=== PATIENT | male | born 1940 | race Caucasian/White ===

== ENCOUNTER 2020-05-05 17:48 | Inpatient (IN) ==
[2020-05-05] MEDS ORDERED: MORPHINE 4 MG/1 ML VIAL IV ONE (18:48)
[2020-05-05] MEDS ORDERED: ONDANSETRON 4 MG/2 ML VIAL IV STA (18:48)
[2020-05-05 20:41] LABS: Basophils % 0.2 % (0.0-0.8); Eosinophils % 0.1 % (0.00-10.9); Hematocrit 33.6 VOL% (42.0-52.0); Hemoglobin 11.5 GM/DL (14.0-18.0); Immature Granulocytes % 0.7 %; Immature Granulocytes Absolute 0.13 #; Lymphocytes # 0.5 10*3/uL (1.4-4.0); Lymphocytes % 2.6 % (21.2-54.2); Mean Corpuscular HGB Conc 34.2 GM/DL (32-36); Mean Corpuscular Volume 95.5 FL (87-102); Mean Platelet Volume 8.8 FL (9.6-12.0); Monocytes % 4.6 % (1.7-12.7); Neutrophils % 91.8 % (38.7-73.9); Platelet Count 262 T/CUMM (130-400); Red Blood Count 3.52 MC/CUMM (3.8-5.5); Red Cell Distribution Width 13.3 % (9.3-17.3); White Blood Count 19.1 T/CUMM (4-12)
[2020-05-05 20:56] LABS: INR 1.1; PT Patient Result 11.6 SECS (9.8-11.9); Partial Thromboplastin Time 25.6 SECS (23.9-33.8)
[2020-05-05 20:57] LABS: Calcium 9.5 MG/DL (8.5-10.1); Osmolality,Calculated 288.4 MOS/KG (273-304); Potassium 3.9 MMOL/L (3.5-5.1)
[2020-05-05 21:02] LABS: Band Neutrophils 2 % (0-10); Lymphocytes 4 % (20-55); Metamyelocytes 1 %; Platelet Estimate Normal; Segmented Neutrophils 88 % (50-85); Total Cells Counted 100
[2020-05-05] MEDS ORDERED: GLUCAGON 1 MG VIAL IM PRN (22:00)
[2020-05-05] MEDS ORDERED: ACETAMINOPHEN 325 MG TABLET PO PRN (22:00)
[2020-05-05] MEDS ORDERED: DOCUSATE SODIUM 100 MG CAPSULE PO PRN (22:00)
[2020-05-05] MEDS ORDERED: DEXTROSE 50% 25 GM/50 ML VIAL IV PRN (22:00)
[2020-05-05] MEDS ORDERED: PROMETHAZINE 25 MG/1 ML VIAL IM PRN (22:00)
[2020-05-05] MEDS: traZODone 50 MG TABLET PO SCH (22:18)
[2020-05-05] MEDS: QUEtiapine 100 MG TABLET PO SCH (22:18)
[2020-05-05] MEDS: HYDROmorphone 2 MG/1 ML VIAL IV PRN (22:45)
[2020-05-06] MEDS: HYDROmorphone 2 MG/1 ML VIAL IV PRN ×2 (00:05→06:17)
[2020-05-06] MEDS: ONDANSETRON 4 MG/2 ML VIAL IV PRN (00:07)
[2020-05-06] MEDS: SODIUM CHLORIDE 0.9% 1,000 ML IV SCH ×2 (00:11→09:30)
[2020-05-06 04:58] LABS: Basophils % 0.3 % (0.0-0.8); Eosinophils # 0.1 10*3/uL (0.0-0.87); Eosinophils % 0.5 % (0.00-10.9); Hematocrit 31.6 VOL% (42.0-52.0); Hemoglobin 10.5 GM/DL (14.0-18.0); Immature Granulocytes % 0.5 %; Immature Granulocytes Absolute 0.06 #; Lymphocytes # 1.7 10*3/uL (1.4-4.0); Lymphocytes % 12.5 % (21.2-54.2); Mean Corpuscular HGB Conc 33.2 GM/DL (32-36); Mean Corpuscular Volume 96.9 FL (87-102); Neutrophils % 79.2 % (38.7-73.9); Platelet Count 240 T/CUMM (130-400); Red Blood Count 3.26 MC/CUMM (3.8-5.5); Red Cell Distribution Width 13.1 % (9.3-17.3); White Blood Count 13.2 T/CUMM (4-12)
[2020-05-06 05:14] LABS: Calcium 8.9 MG/DL (8.5-10.1); Osmolality,Calculated 287.5 MOS/KG (273-304); Potassium 4.1 MMOL/L (3.5-5.1)
[2020-05-06] MEDS ORDERED: ceFAZolin 1,000 MG in SYRINGE 1 EACH IV ONE (06:30)
[2020-05-06] MEDS: amLODIPine 5 MG TABLET PO SCH (08:43)
[2020-05-06] MEDS: FAMOTIDINE 20 MG TABLET PO SCH (08:43)
[2020-05-06] MEDS: PANTOPRAZOLE 40 MG TABLET PO SCH (08:43)
[2020-05-06] MEDS ORDERED: BACITRACIN OINT 0.9 GM PACK TOP ONE (09:23)
[2020-05-06] MEDS ORDERED: ROPIVACAINE 0.5% 30 ML VIAL ONE (10:07)
[2020-05-06] MEDS ORDERED: DEXAMETHASONE 4 MG/1 ML VIAL ONE (10:07)
[2020-05-06] MEDS ORDERED: LIDOCAINE 2% 5 ML VIAL ONE ×2 (10:07→10:27)
[2020-05-06] MEDS ORDERED: propofoL 200 MG/20 ML VIAL IV ONE ×2 (10:27→11:25)
[2020-05-06] MEDS ORDERED: KETAMINE 500 MG/10 ML VIAL ONE (10:27)
[2020-05-06] MEDS ORDERED: fentaNYL 100 MCG/2 ML VIAL ONE (10:31)
[2020-05-06] MEDS ORDERED: MORPHINE 4 MG/1 ML VIAL IV PRN (11:46)
[2020-05-06] MEDS ORDERED: MAGNESIUM HYDROXIDE SUSP 30 ML UDCUP PO PRN (11:46)
[2020-05-06] MEDS ORDERED: diphenhydrAMINE 50 MG/1 ML VIAL IV PRN (12:02)
[2020-05-06] MEDS ORDERED: ONDANSETRON 4 MG/2 ML VIAL IV PRN (12:02)
[2020-05-06] MEDS ORDERED: PROMETHAZINE INJ 25 MG in SODIUM CHLORIDE 0.9% 50 ML IV PRN (12:02)
[2020-05-06] MEDS ORDERED: HYDROmorphone 2 MG/1 ML VIAL IV PRN (12:02)
[2020-05-06] MEDS ORDERED: MEPERIDINE 25 MG/1 ML VIAL IV PRN (12:02)
[2020-05-06] MEDS: LACTATED RINGERS 1,000 ML IV SCH ×2 (12:10→18:33)
[2020-05-06] MEDS: MORPHINE 4 MG/1 ML VIAL IV PRN ×2 (15:11→21:35)
[2020-05-06] MEDS: ceFAZolin 1,000 MG in SYRINGE 1 EACH IV SCH (21:27)
[2020-05-06] MEDS: QUEtiapine 100 MG TABLET PO SCH (21:27)
[2020-05-06] MEDS: traZODone 50 MG TABLET PO SCH (21:27)
[2020-05-07] MEDS: MORPHINE 4 MG/1 ML VIAL IV PRN (04:53)
[2020-05-07] MEDS: LACTATED RINGERS 1,000 ML IV SCH (04:53)
[2020-05-07] MEDS ORDERED: ceFAZolin 1,000 MG in SYRINGE 1 EACH IV SCH (05:00)
[2020-05-07] MEDS: ceFAZolin 1,000 MG in SYRINGE 1 EACH IV SCH (05:07)
[2020-05-07 05:20] LABS: Basophils % 0.2 % (0.0-0.8); Eosinophils % 0.2 % (0.00-10.9); Hematocrit 28.9 VOL% (42.0-52.0); Hemoglobin 9.5 GM/DL (14.0-18.0); Immature Granulocytes % 0.7 %; Immature Granulocytes Absolute 0.08 #; Lymphocytes # 0.9 10*3/uL (1.4-4.0); Lymphocytes % 8.2 % (21.2-54.2); Mean Corpuscular HGB Conc 32.9 GM/DL (32-36); Mean Corpuscular Volume 96.7 FL (87-102); Monocytes % 6.7 % (1.7-12.7); Platelet Count 197 T/CUMM (130-400); Red Blood Count 2.99 MC/CUMM (3.8-5.5); Red Cell Distribution Width 13.1 % (9.3-17.3); White Blood Count 11.4 T/CUMM (4-12)
[2020-05-07 05:55] LABS: Osmolality,Calculated 286.4 MOS/KG (273-304); Potassium 4.1 MMOL/L (3.5-5.1)
[2020-05-07] MEDS: FAMOTIDINE 20 MG TABLET PO SCH (09:07)
[2020-05-07] MEDS: amLODIPine 5 MG TABLET PO SCH (09:07)
[2020-05-07] MEDS: PANTOPRAZOLE 40 MG TABLET PO SCH (09:08)
[2020-05-07] MEDS: FONDAPARINUX 2.5 MG/0.5 ML SYRINGE SUBCUT SCH (09:08)
[2020-05-07] MEDS: ONDANSETRON 4 MG/2 ML VIAL IV PRN (19:23)
[2020-05-07] MEDS: traZODone 50 MG TABLET PO SCH (21:34)
[2020-05-07] MEDS: QUEtiapine 100 MG TABLET PO SCH (21:34)
[2020-05-08] MEDS: MORPHINE 4 MG/1 ML VIAL IV PRN (00:32)
[2020-05-08 06:03] LABS: Basophils # 0.1 10*3/uL (0.0-0.2); Basophils % 0.6 % (0.0-0.8); Eosinophils # 0.8 10*3/uL (0.0-0.87); Eosinophils % 7.2 % (0.00-10.9); Hematocrit 29.3 VOL% (42.0-52.0); Hemoglobin 9.9 GM/DL (14.0-18.0); Immature Granulocytes % 0.6 %; Immature Granulocytes Absolute 0.06 #; Lymphocytes # 1.5 10*3/uL (1.4-4.0); Lymphocytes % 13.8 % (21.2-54.2); Mean Corpuscular HGB Conc 33.8 GM/DL (32-36); Mean Corpuscular Volume 96.1 FL (87-102); Mean Platelet Volume 9.3 FL (9.6-12.0); Monocytes % 7.3 % (1.7-12.7); Neutrophils % 70.5 % (38.7-73.9); Platelet Count 214 T/CUMM (130-400); Red Blood Count 3.05 MC/CUMM (3.8-5.5); Red Cell Distribution Width 13.1 % (9.3-17.3); White Blood Count 10.7 T/CUMM (4-12)
[2020-05-08] MEDS: FAMOTIDINE 20 MG TABLET PO SCH (08:59)
[2020-05-08] MEDS: FONDAPARINUX 2.5 MG/0.5 ML SYRINGE SUBCUT SCH (08:59)
[2020-05-08] MEDS: amLODIPine 5 MG TABLET PO SCH (09:00)
[2020-05-08] MEDS: PANTOPRAZOLE 40 MG TABLET PO SCH (09:00)
[2020-05-08] MEDS: ONDANSETRON 4 MG/2 ML VIAL IV PRN ×2 (11:38→18:00)
[2020-05-08] MEDS: POLYETHYLENE GLYCOL POWDER 17 GM PACK PO SCH ×2 (15:45→20:28)
[2020-05-08] MEDS: DOCUSATE SODIUM 100 MG CAPSULE PO SCH ×2 (15:46→20:28)
[2020-05-08] MEDS: NICOTINE 21 MG/24 HR PATCH TRANSDERM SCH (15:46)
[2020-05-08] MEDS: traZODone 50 MG TABLET PO SCH (20:28)
[2020-05-08] MEDS: QUEtiapine 100 MG TABLET PO SCH (20:28)
[2020-05-09 06:24] LABS: Basophils # 0.1 10*3/uL (0.0-0.2); Basophils % 0.5 % (0.0-0.8); Eosinophils # 0.7 10*3/uL (0.0-0.87); Eosinophils % 7.3 % (0.00-10.9); Hemoglobin 10.3 GM/DL (14.0-18.0); Immature Granulocytes % 0.9 %; Immature Granulocytes Absolute 0.09 #; Lymphocytes # 1.3 10*3/uL (1.4-4.0); Lymphocytes % 13.8 % (21.2-54.2); Mean Corpuscular HGB Conc 33.2 GM/DL (32-36); Mean Corpuscular Volume 98.1 FL (87-102); Mean Platelet Volume 9.1 FL (9.6-12.0); Monocytes % 8.5 % (1.7-12.7); Platelet Count 293 T/CUMM (130-400); Red Blood Count 3.16 MC/CUMM (3.8-5.5); Red Cell Distribution Width 13.2 % (9.3-17.3); White Blood Count 9.7 T/CUMM (4-12)
[2020-05-09 07:05] LABS: Calcium 9.1 MG/DL (8.5-10.1); Potassium 3.1 MMOL/L (3.5-5.1)
[2020-05-09] MEDS ORDERED: POTASSIUM CHLORIDE 20 MEQ TABLET PO ONE (09:03)
[2020-05-09] MEDS: FONDAPARINUX 2.5 MG/0.5 ML SYRINGE SUBCUT SCH (10:16)
[2020-05-09] MEDS: DOCUSATE SODIUM 100 MG CAPSULE PO SCH ×2 (10:17→20:19)
[2020-05-09] MEDS: POLYETHYLENE GLYCOL POWDER 17 GM PACK PO SCH ×3 (10:17→20:19)
[2020-05-09] MEDS: NICOTINE 21 MG/24 HR PATCH TRANSDERM SCH (10:18)
[2020-05-09] MEDS: FAMOTIDINE 20 MG TABLET PO SCH (10:18)
[2020-05-09] MEDS: PANTOPRAZOLE 40 MG TABLET PO SCH (10:18)
[2020-05-09] MEDS: carvediloL 6.25 MG TABLET PO SCH ×2 (10:18→20:19)
[2020-05-09] MEDS: amLODIPine 5 MG TABLET PO SCH (10:19)
[2020-05-09] MEDS: ONDANSETRON 4 MG/2 ML VIAL IV PRN (12:54)
[2020-05-09] MEDS: traZODone 50 MG TABLET PO SCH (20:19)
[2020-05-09] MEDS: QUEtiapine 100 MG TABLET PO SCH (20:19)
[2020-05-10 06:06] LABS: Basophils # 0.1 10*3/uL (0.0-0.2); Basophils % 0.9 % (0.0-0.8); Eosinophils # 1.3 10*3/uL (0.0-0.87); Eosinophils % 11.8 % (0.00-10.9); Hematocrit 35.9 VOL% (42.0-52.0); Hemoglobin 11.7 GM/DL (14.0-18.0); Immature Granulocytes % 1.3 %; Immature Granulocytes Absolute 0.14 #; Mean Corpuscular HGB Conc 32.6 GM/DL (32-36); Mean Corpuscular Volume 99.4 FL (87-102); Mean Platelet Volume 10.1 FL (9.6-12.0); Monocytes % 9.3 % (1.7-12.7); Neutrophils % 58.7 % (38.7-73.9); Platelet Count 290 T/CUMM (130-400); Red Blood Count 3.61 MC/CUMM (3.8-5.5); Red Cell Distribution Width 13.2 % (9.3-17.3); White Blood Count 10.9 T/CUMM (4-12)
[2020-05-10 06:09] LABS: Calcium 9.4 MG/DL (8.5-10.1); Osmolality,Calculated 273.2 MOS/KG (273-304); Potassium 3.9 MMOL/L (3.5-5.1)
[2020-05-10 09:47] LABS: Band Neutrophils 3 % (0-10); Eosinophils 15 % (0-10); Lymphocytes 22 % (20-55); Segmented Neutrophils 53 % (50-85); Total Cells Counted 100
[2020-05-10 09:48] LABS: Anisocytosis 1+; Macrocytosis 1+; Platelet Estimate Normal; Polychromasia 2+
[2020-05-10] MEDS: carvediloL 6.25 MG TABLET PO SCH ×2 (09:57→20:50)
[2020-05-10] MEDS: DOCUSATE SODIUM 100 MG CAPSULE PO SCH ×2 (09:57→20:49)
[2020-05-10] MEDS: PANTOPRAZOLE 40 MG TABLET PO SCH (09:57)
[2020-05-10] MEDS: FAMOTIDINE 20 MG TABLET PO SCH (09:57)
[2020-05-10] MEDS: FONDAPARINUX 2.5 MG/0.5 ML SYRINGE SUBCUT SCH (09:58)
[2020-05-10] MEDS: NICOTINE 21 MG/24 HR PATCH TRANSDERM SCH (09:58)
[2020-05-10] MEDS: POLYETHYLENE GLYCOL POWDER 17 GM PACK PO SCH ×3 (09:58→20:49)
[2020-05-10] MEDS: MORPHINE 4 MG/1 ML VIAL IV PRN ×3 (09:59→22:01)
[2020-05-10] MEDS: traZODone 50 MG TABLET PO SCH (20:49)
[2020-05-10] MEDS: QUEtiapine 100 MG TABLET PO SCH (20:50)
[2020-05-11] MEDS: MORPHINE 4 MG/1 ML VIAL IV PRN (05:07)
[2020-05-11] MEDS: ONDANSETRON 4 MG/2 ML VIAL IV PRN (05:11)
[2020-05-11 06:22] LABS: Basophils # 0.1 10*3/uL (0.0-0.2); Basophils % 0.6 % (0.0-0.8); Eosinophils # 1.2 10*3/uL (0.0-0.87); Eosinophils % 12.5 % (0.00-10.9); Hematocrit 29.5 VOL% (42.0-52.0); Hemoglobin 9.9 GM/DL (14.0-18.0); Immature Granulocytes % 1.6 %; Immature Granulocytes Absolute 0.16 #; Lymphocytes % 19.7 % (21.2-54.2); Mean Corpuscular HGB Conc 33.6 GM/DL (32-36); Mean Corpuscular Volume 95.5 FL (87-102); Mean Platelet Volume 8.8 FL (9.6-12.0); Monocytes % 12.3 % (1.7-12.7); Neutrophils % 53.3 % (38.7-73.9); Platelet Count 326 T/CUMM (130-400); Red Blood Count 3.09 MC/CUMM (3.8-5.5); Red Cell Distribution Width 13.2 % (9.3-17.3); White Blood Count 9.9 T/CUMM (4-12)
[2020-05-11 06:44] LABS: Band Neutrophils 2 % (0-10); Eosinophils 17 % (0-10); Hypochromasia 1+; Lymphocytes 16 % (20-55); Microcytosis 1+; Platelet Estimate Adequate; Segmented Neutrophils 54 % (50-85); Total Cells Counted 100
[2020-05-11 06:48] LABS: Calcium 8.8 MG/DL (8.5-10.1); Osmolality,Calculated 284.5 MOS/KG (273-304); Potassium 3.3 MMOL/L (3.5-5.1)
[2020-05-11] MEDS ORDERED: POTASSIUM CHLORIDE 20 MEQ TABLET PO ONE (08:30)
[2020-05-11] MEDS ORDERED: VENLAFAXINE XR 75 MG CAPSULE PO SCH (09:00)
[2020-05-11] MEDS: DOCUSATE SODIUM 100 MG CAPSULE PO SCH (09:36)
[2020-05-11] MEDS: carvediloL 6.25 MG TABLET PO SCH (09:37)
[2020-05-11] MEDS: FAMOTIDINE 20 MG TABLET PO SCH (09:37)
[2020-05-11] MEDS: POLYETHYLENE GLYCOL POWDER 17 GM PACK PO SCH ×2 (09:37→15:54)
[2020-05-11] MEDS: PANTOPRAZOLE 40 MG TABLET PO SCH (09:37)
[2020-05-11] MEDS: FONDAPARINUX 2.5 MG/0.5 ML SYRINGE SUBCUT SCH (09:43)
[2020-05-11] MEDS: NICOTINE 21 MG/24 HR PATCH TRANSDERM SCH (09:44)
[2020-05-11 15:46] VITALS: BP 140/77
== END 2020-05-11 16:41 | disposition swing bed (61) | DRG 481 ==
LOC: EDBD → EDUNIT# → N.ED 17:48 → N.EDINP 21:23 → N.5E 23:20
PROVIDERS: ADMIT Internal Medicine; ATTEND Internal Medicine